=== PATIENT | female | born 1985 | race Caucasian/White ===

== ENCOUNTER → 2018-07-09 | Emergency (ER) | payer MEDICAID ==
[~2018-07-09] VITALS: Ht 162.6 cm; Wt 107.4 kg
[~2018-07-09] MED LIST: ALPR1TAB2 PO; ASPI-535 PO; BEN50 PO; BUPR-165 PO; CALC-143 PO; DIPHENHYDRAMINE 50 MG INJ IV ONE; ERGO500013 PO; FAMO20TA18 PO; FAMOTIDINE 20 MG INJ IV ONE; FENO48TA16 PO; FURO40TA4 PO; GABA-528 PO; HYDR2TAB3 PO; INSU100I33 SC; INSU500V SQ; INSULIN LISPRO 100 UNIT/ML VIAL SC ONE; LISI40TA3 PO; METF-849 PO; PIOG15TA12 PO; SOD CHLORIDE 0.9% 1,000 ML IV ONE
[2018-07-09 20:27] VITALS: Ht 162.6 cm; Wt 107.4 kg
--- NOTE | 2018-07-09 22:17 | ERD ---
ER Documentation Chief Complaint Chief Complaint itch HPI The patient is a 33-year-old female, presenting to the ER because of generalized body pruritus around 9 PM after she ate a chicken sandwich at [employer]. She denies similar symptoms previously, she also had anxiety and ran out of her Xanax for the last week. Denies headache, neck pain, chest pain, abdominal pain, vomiting, dysuria, diarrhea. She is currently being treated for pyelonephritis with aztreonam via the PICC line on her right upper extremity Past medical history: Asthma, diabetes mellitus, hypertension, anxiety, diabetic neuropathy Past surgical history: , appendectomy, cholecystectomy ROS All systems reviewed and are negative except as per history of present illness. Medications Home Meds Active Scripts Famotidine* (Famotidine*) 20 Mg Tablet, 20 MG PO DAILY, #10 TAB Prov:SLADE PRUETT MD 07/10/18 Diphenhydramine Hcl* (Benadryl*) 50 Mg Cap, 50 MG PO Q6H PRN for ITCHING/RASH, #20 CAP Prov:SLADE PRUETT MD 07/10/18 Reported Medications Gabapentin* (Gabapentin*) 800 Mg Tablet, 800 MG PO TID, #90 TAB 07/10/18 Calcium Citrate/Vitamin D (Citracal-Vitamin D 200 MG-250) 1 Each Tablet, 1 EACH PO BID, TAB 07/10/18 Ergocalciferol (Vitamin D2) (VITAMIN D2) 50,000 Unit Capsule, 91577 UNIT PO QMON, CAP 07/10/18 Aspirin Ec (Aspir 81) 81 Mg Tablet.dr, 81 MG PO DAILY, #30 TAB 07/10/18 Alprazolam* (Xanax*) 1 Mg Tab, 1 MG PO Q8H PRN for ANXIETY, TAB 07/10/18 Furosemide* (Furosemide*) 40 Mg Tablet, 40 MG PO BID, TAB 07/10/18 Lisinopril* (Lisinopril*) 40 Mg Tablet, 40 MG PO DAILY, #30 TAB 07/10/18 Metformin* (Glucophage*) 500 Mg Tab, 500 MG PO WITH BREAKFAST DINNE, #30 TAB 07/10/18 Hydromorphone Hcl* (Hydromorphone Hcl*) 2 Mg Tablet, 2 MG PO Q6H PRN for PAIN, TAB 07/10/18 Insulin Glargine,Hum.rec.anlog (Basaglar Kwikpen U-100) 100 Unit/1 Ml Insuln.pen, 95 UNIT SC BID, EA 07/10/18 Insulin Regular, Human (Humulin R U-500) 500 Unit/1 Ml Vial, 125 UNIT SQ TID, VIAL 07/10/18 Fenofibrate Nanocrystallized* (Tricor*) Unknown Strength Tablet, PO DAILY, TAB 07/10/18 Bupropion Hcl* (Wellbutrin SR*) 150 Mg Tablet.sa, 150 MG PO BID, TAB.SA 07/10/18 Pioglitazone Hcl* (Actos*) Unknown Strength Tablet, PO DAILY, #30 TAB 07/10/18 Allergies Allergies: Coded Allergies: acetaminophen (Verified Allergy, Unknown, 07/09/18) ceftriaxone (Verified Allergy, Unknown, 07/09/18) cephalexin (Verified Allergy, Unknown, 07/09/18) ciprofloxacin (Verified Allergy, Unknown, 07/09/18) ibuprofen (Verified Allergy, Unknown, 07/09/18) ketorolac (Verified Allergy, Unknown, 07/09/18) levofloxacin (Verified Allergy, Unknown, 07/09/18) nitrofurantoin (Verified Allergy, Unknown, 07/09/18) sulfamethoxazole (Verified Allergy, Unknown, 07/09/18) trimethoprim (Verified Allergy, Unknown, 07/09/18) Physical Exam Vitals Vital Signs Date Temp Pulse Resp B/P (MAP) Pulse Ox O2 O2 Flow FiO2 Time Delivery Rate 07/10/18 98.8 100 20 119/72 96 Room Air 04:28 (88) 07/09/18 99.3 119 20 132/79 9 Room Air 22:32 (96) 07/09/18 99.3 113 20 149/80 95 20:27 (103) Physical Exam Const: No acute distress. Head: Atraumatic. Eyes: Normal Conjunctiva. ENT: Normal External Ears, Nose and Mouth. Neck: Full range of motion. No meningismus. Resp: Clear to auscultation bilaterally. Cardio: Regular rate and rhythm. Abd: Soft, non distended, normal bowel sounds, non tender. Skin: No petechiae or rashes. Back: No midline or flank tenderness. Ext: No cyanosis, or edema. Neur: Awake and alert. No focal deficit Psych: Anxious Result Diagram: 07/09/18222407/09/182224 Results 24 hrs Laboratory Tests Test 07/09/18 22:25 07/09/18 23:35 07/10/18 01:55 White Blood Count 9.3 10^3/ul Red Blood Count 4.00 10^6/ul Hemoglobin 11.3 g/dl Hematocrit 34.4 % Mean Corpuscular Volume 86.0 fl Mean Corpuscular Hemoglobin 28.3 pg Mean Corpuscular 32.8 g/dl Hemoglobin Concent Red Cell Distribution Width 13.6 % Platelet Count 225 10^3/UL Mean Platelet Volume 12.5 fl Immature Granulocytes % 0.300 % Neutrophils % 90.9 % Lymphocytes % 8.2 % Monocytes % 0.5 % Eosinophils % 0.0 % Basophils % 0.1 % Nucleated Red Blood Cells % 0.0 /100WBC Immature Granulocytes # 0.030 10^3/ul Neutrophils # 8.4 10^3/ul Lymphocytes # 0.8 10^3/ul Monocytes # 0.1 10^3/ul Eosinophils # 0.0 10^3/ul Basophils # 0.0 10^3/ul Nucleated Red Blood Cells # 0.0 10^3/ul Sodium Level 137 mmol/L Potassium Level 4.4 mmol/L Chloride Level 100 mmol/L Carbon Dioxide Level 25 mmol/L Anion Gap 12 Blood Urea Nitrogen 13 mg/dl Creatinine 0.54 mg/dl Est Glomerular Filtrat Rate mL/min > 60 mL/min Glucose Level 456 mg/dl Calcium Level 9.2 mg/dl Total Bilirubin 0.3 mg/dl Direct Bilirubin 0.00 mg/dl Indirect Bilirubin 0.3 mg/dl Aspartate Amino Transf (AST/SGOT) 46 IU/L Alanine 51 IU/L Aminotransferase (ALT/SGPT) Alkaline Phosphatase 135 IU/L Total Protein 7.4 g/dl Albumin 4.0 g/dl Globulin 3.40 g/dl Albumin/Globulin Ratio 1.17 Lipase 38 U/L POC Beta HCG, Qualitative NEGATIVE Bedside Glucose 445 mg/dL Current Medications Medications Dose Sig/Yousuf Start Time Status Last (Trade) Ordered Route PRN Stop Time Admin Dose Reason Admin 50 mg ONCE ONCE 07/09/18 DC 07/09/18 Diphenhydrami IV 23:30 23:24 ne HCl 07/09/18 23:31 (Benadryl) Sodium 1,000 ml @ Q1H ONCE 07/09/18 DC 07/09/18 Chloride 1,000 mls/hr IV 23:30 23:24 07/10/18 00:29 Sodium 1,000 ml @ Q1H ONCE 07/10/18 DC 07/10/18 Chloride 1,000 mls/hr IV 02:00 01:58 07/10/18 02:59 Insulin 8 unit ONCE ONCE 07/10/18 DC 07/10/18 Human SC 02:00 02:09 Lispro 07/10/18 02:01 (Humalog) Famotidine 20 mg ONCE ONCE 07/10/18 DC 07/10/18 (Pepcid Iv) IV 03:30 03:34 07/10/18 03:31 25 mg ONCE ONCE 07/10/18 DC 07/10/18 Diphenhydrami IV 03:30 03:34 ne HCl 07/10/18 03:31 (Benadryl) Procedures/MDM MEDICAL MAKING DECISION: The patient is a 32-year-old female, presenting with acute food allergy, acute diabetic hyperglycemia, was treated with Benadryl 50 mg IV for acute food allergy, 1 L normal saline and Humalog 8 units subcutaneously for acute hyperglycemia with good response, is stable for outpatient follow-up The differential diagnoses considered include but are not limited to anxiety attack, panic attack, HHS, DKA Departure Diagnosis: Primary Impression: Food allergy Additional Impressions: Hyperglycemia Anemia Condition: Good Comments She was discharge with Benadryl and Pepcid I discussed the findings with the patient. I advised the patient to follow-up with the primary physician in about 2-3 days, sooner if needed and return if any concern. Disclaimer: Inadvertent spelling and grammatical errors are likely due to EHR/dictation software use and do not reflect on the overall quality of patient care. Also, please note that the electronic time recorded on this note does not necessarily reflect the actual time of the patient encounter. SLADE PRUETT MD Jul 09, 2018 22:17
[2018-07-10 04:28] VITALS: BP 119/72; PULSE 100; RESP 20
== END | disposition home or self-care (01) ==
LOC: E/R 20:14
DX: E11.65 Type 2 diabetes mellitus with hyperglycemia (principal); D64.9 Anemia, unspecified; I10 Essential (primary) hypertension; J45.909 Unspecified asthma, uncomplicated; Z79.4 Long term (current) use of insulin
CPT/HCPCS: 36415; 80053; 81025; 83690; 85025; 96374; J1200; J7030; Z7502; 82962; 96372; 96375; 96376; J1815